=== PATIENT | male | born 1985 | race American Indian/Alaskan Native ===

== ENCOUNTER 2021-12-21 00:23 | Emergency (ER) | payer SELFPAY ==
[2021-12-21 01:57] VITALS: BP 148/70
== END 2021-12-21 03:15 | disposition left against medical advice (07) ==
LOC: ED 00:23
DX: G43.909 Migraine, unspecified, not intractable, without status migrainosus (principal); Z53.21 Procedure and treatment not carried out due to patient leaving prior to being seen by health care provider